=== PATIENT | female | born 1955 | race Caucasian/White ===

== ENCOUNTER 2022-03-10 15:19 | Emergency (ER) | payer MEDICARE, OTHER ==
[~2022-03-10] VITALS: Ht 175.3 cm; Wt 113.4 kg
[~2022-03-10 15:19] MED LIST: ASA81 MG PO; ASPIRIN81 MG PO; BENZONATATE100 MG PO; CALTRATE 600+D1 EACH PO; DULERA 200 MCG/13 GM INH; EFFEXOR XR 3737.5 MG PO; EFFEXOR100 MG PO; FLUOXETINE HCL20 M1 PO; GABAPENTIN300 MG PO; GABAPENTIN400 MG PO; GLIMEPIRIDE2 MG PO; HYDROCODON-ACE1 EAC9 PO; HYDROCODONE-AP1 EA10 PO; KLOR-CON20 MEQ PO; LASIX40 MG PO; LINZESS145 MCG PO; LOSARTAN POTASS25 MG PO; METFORMIN HCL500 M2 PO; METHOCARBAMOL750 MG PO; MONTELUKAST SOD10 MG PO; NOVOLIN 70100 UNIT/3 SC; NOVOLIN R100 UNIT/1 SQ; OMEPRAZOLE40 MG PO; PRAVASTATIN SOD80 MG PO; PROAIR HFA INH8.5 GM INH; PROVENTIL HFA6.7 GM INH; ROBAXIN-750750 MG PO; SUCRALFATE1 GM PO; TRELEGY ELLIPT1 EACH INH; ULTRAM 50MG50 MG PO; VENTOLIN HFA18 GM INH; VICOPROFEN PO; VIT B12 PO; VIT D3 PO; VITAMIN B-121000 MCG PO; VITAMIN D31000 UNIT PO; Z ALBUTEROL SULFAT PO; Z.0.BENADRYL25 MG PO; Z.0.EFFEXOR XR150 MG PO; Z.0.LISINOPRIL10 MG PO; Z.0.LYRICA50 MG PO; Z.0.OMEPRAZOLE40 MG PO; Z.0.SIMVASTATIN40 MG PO; Z.1.VITAMIN D400 UNI PO; Z.2.METFORMIN HCL500 PO; ZANTAC150 M1 PO; ZANTAC150 MG PO; [UNRECOGNIZED DRUG - CODE] PO; [UNRECOGNIZED DRUG - OTHER] NS
[2022-03-10] MEDS ORDERED: AMOXICILLIN/CLAVULANATE K 875 MG TAB PO STA (15:23)
[2022-03-10] MEDS ORDERED: TETANUS/DIPHTHERIA TOX ADULT 0.5 ML SYR IM ONE (15:30)
[2022-03-10] MEDS ORDERED: AMOX TR-K CLV1 EAC2 PO (16:01)
== END 2022-03-10 16:40 | disposition home or self-care (01) ==
LOC: ER 15:26 → MERGE 15:26 → UNMERGE 15:26 → ER 16:40
DX: S50.811A Abrasion of right forearm, initial encounter (principal); W55.03XA Scratched by cat, initial encounter; W01.0XXA Fall on same level from slipping, tripping and stumbling without subsequent striking against object, initial encounter; Y92.89 Other specified places as the place of occurrence of the external cause; I10 Essential (primary) hypertension; E11.9 Type 2 diabetes mellitus without complications; E78.5 Hyperlipidemia, unspecified; J44.9 Chronic obstructive pulmonary disease, unspecified; J45.909 Unspecified asthma, uncomplicated; M54.9 Dorsalgia, unspecified; G89.29 Other chronic pain
CPT/HCPCS: 70450; 72125; 90714; 99283

== ENCOUNTER 2025-01-28 20:28 | Inpatient (IN) | payer MEDICARE, OTHER ==
[~2025-01-28] VITALS: Ht 162.6 cm; Wt 133.4 kg
[~2025-01-28 20:28] MED LIST changes: +AMOX TR-K CLV1 EAC2 PO
[2025-01-28] MEDS ORDERED: SODIUM CHLORIDE 0.9% 100 ML ONE (22:25)
[2025-01-28] MEDS ORDERED: IOPAMIDOL 370 MG/ML 100 ML INFUS..BTL INJ ONE (22:25)
[2025-01-28] MEDS: SODIUM BICARBONATE 8.4% INJ 50 ML SYR IV STA (22:33)
[2025-01-28] MEDS: FUROSEMIDE INJ 10 MG/ML 4 ML VIAL IV ONE (22:33)
[2025-01-28] MEDS: CALCIUM GLUC 1 G/50 ML NACL 50 ML IV ONE (22:34)
[2025-01-28] MEDS: DEXTROSE 50% SYRINGE 50 ML IV ONE (22:34)
[2025-01-28] MEDS ORDERED: HYDRALAZINE HCL 20 MG/ML VIAL IV PRN (23:15)
[2025-01-29] VITALS (10 sets, daily range): BP systolic 147–170; BP diastolic 61–68; PULSE 68–81; RESP 16–20; TEMP 97.9–98.5; O2SAT 91–97
[2025-01-29] MEDS ORDERED: SODIUM CHLORIDE FLUSH 10 ML SYR INJ PRN (01:00)
[2025-01-29] MEDS ORDERED: POLYETHYLENE GLYCOL 3350 17 GM PACK PO PRN (02:45)
[2025-01-29] MEDS ORDERED: DEXTROSE 50% SYRINGE 50 ML IV PRN (02:45)
[2025-01-29] MEDS ORDERED: MAGNESIUM/ALUMINUM/SIMETHICONE 30 ML UDC PO PRN (02:45)
[2025-01-29] MEDS: FUROSEMIDE INJ 10 MG/ML 4 ML VIAL IV SCH (03:29)
[2025-01-29] MEDS: METHYLPREDNISOLONE SOD SUCC 40 MG/ML VIAL 1ML IV ONE (03:30)
[2025-01-29 05:51] LABS: EST GLOMERULAR FILTRATION RATE 41.0 ML/MIN (>=60)
[2025-01-29 06:14] LABS: INR 1.16
[2025-01-29] MEDS: INSULIN REGULAR, HUMAN 100 UNIT/1 ML IV ONE (06:43)
[2025-01-29] MEDS: IPRATROPIUM BROMIDE 0.02% 2.5 ML NEB NEB SCH (07:00)
[2025-01-29] MEDS: INSULIN REGULAR, HUMAN 100 UNIT/1 ML SQ SCH (07:30)
[2025-01-29] MEDS: SOD POLYSTYRENE SULFONATE SUSP 15 GM/60 ML BTL PO ONE (08:26)
[2025-01-29] MEDS: MONTELUKAST SODIUM 10 MG TAB PO SCH (08:55)
[2025-01-29] MEDS: SENNOSIDES 8.6 MG TAB PO SCH (08:55)
[2025-01-29] MEDS: MULTIVITAMINS/MINERALS TAB PO SCH (08:55)
[2025-01-29] MEDS: PREDNISONE 20 MG TAB PO SCH (08:55)
[2025-01-29] MEDS: ACETAMINOPHEN 325 MG TAB PO PRN (08:55)
[2025-01-29] MEDS: DOCUSATE SODIUM 100 MG CAP PO SCH (08:55)
[2025-01-29] MEDS: PANTOPRAZOLE SOD 40 MG TABEC PO SCH (08:56)
[2025-01-29] MEDS ORDERED: LOSARTAN POTASS50 MG PO (09:40)
[2025-01-29] MEDS ORDERED: POTASSIUM CHLO20 ME1 PO (09:40)
[2025-01-29] MEDS ORDERED: AMIODARONE HCL200 MG PO (09:40)
[2025-01-29] MEDS ORDERED: TRIAMTERENE-HCTZ1 EA PO (09:40)
[2025-01-29] MEDS ORDERED: ELIQUIS5 MG PO (09:40)
[2025-01-29] MEDS ORDERED: TRELEGY ELLIPT1 EACH (09:40)
[2025-01-29] MEDS ORDERED: IPRAT-ALBUT 0.5-3 ML (09:40)
[2025-01-29 11:30] LABS: BASOPHILS % 0.7 % (0.0-1.0); EOSINOPHILS % 1.2 % (0.0-6.0); LYMPHOCYTES % 9.7 % (18.0-39.1); MONOCYTES % 3.6 % (4.4-11.3); NEUTROPHILS % 84.5 % (38.7-80.0); RED CELL DISTRIBUTION WIDTH 15.9 % (11.7-14.4)
[2025-01-29] MEDS: ONDANSETRON HCL INJ 2MG/ML 2ML 2 MG/ML VIAL IV PRN (13:11)
[2025-01-29] MEDS: Morphine 4mg INJECTION 4 MG/ML INJ IV PRN (13:12)
[2025-01-29] MEDS: ALBUTEROL SULF 0.083% NEB SOLN 3 ML NEB NEB PRN (13:51)
[2025-01-29 15:40] LABS: BODY FLUID APPEARANCE CLOUDY; BODY FLUID COLOR YELLOW; BODY FLUID TYPE PLEURAL; WBC,BODY FLUID 889 cells/uL
[2025-01-29 16:14] LABS: LYMPHOCYTES,BODY FLUID 61 %; MONO/MACROPHG,BODY FLUID 11 %; NEUTROPHILS,BODY FLUID 5 %; OTHER CELLS,BODY FLUID 23 %; TOTAL CELLS COUNTED (DIFF) 100
[2025-01-29] MEDS: NIFEDIPINE CR 30 MG TAB PO SCH (16:27)
[2025-01-29] MEDS: APIXABAN 2.5 MG TABLET PO SCH (16:28)
[2025-01-29] MEDS: INSULIN GLARGINE 100 UNITS/ML VIAL SQ SCH (23:30)
[2025-01-30] VITALS (11 sets, daily range): BP systolic 119–154; BP diastolic 50–74; PULSE 64–98; RESP 16–20; TEMP 97.8–98.9; O2SAT 76–100
[2025-01-30 05:51] LABS: BASOPHILS % 0.3 % (0.0-1.0); EOSINOPHILS % 0.8 % (0.0-6.0); LYMPHOCYTES % 17.5 % (18.0-39.1); MONOCYTES % 11.3 % (4.4-11.3); NEUTROPHILS % 69.7 % (38.7-80.0); RED CELL DISTRIBUTION WIDTH 15.9 % (11.7-14.4)
[2025-01-30 06:15] LABS: EST GLOMERULAR FILTRATION RATE 30.0 ML/MIN (>=60)
[2025-01-30 06:33] LABS: PHOSPHORUS 4.4 MG/DL (2.3-4.7)
[2025-01-30] MEDS: APIXABAN 5 MG TABLET PO SCH (08:20)
[2025-01-30] MEDS: LINACLOTIDE 145 MCG CAPSULE PO SCH (08:20)
[2025-01-30] MEDS ORDERED: IPRATROPIUM BROMIDE 0.02% 2.5 ML NEB NEB PRN (10:30)
[2025-01-30 13:54] LABS: GLUCOSE,BODY FLUID 160.0 mg/dL; TOTAL PROTEIN,BODY FLUID 3.4 g/dL
[2025-01-30] MEDS ORDERED: ENOXAPARIN SOD INJ 40 MG/0.4 ML SYR SC SCH (17:00)
[2025-01-30] MEDS: MELATONIN 3 MG TAB PO PRN (20:55)
[2025-01-30] MEDS: GUAIFENESIN/DEXTROMETHORPHAN LIQD 5 ML UDC PO PRN (20:56)
[2025-01-31 04:00] VITALS: BP 142/67; PULSE 66; RESP 20; TEMP 97.7; O2SAT 100
[2025-01-31 06:51] LABS: BASOPHILS % 0.4 % (0.0-1.0); EOSINOPHILS % 2.1 % (0.0-6.0); LYMPHOCYTES % 23.9 % (18.0-39.1); MONOCYTES % 9.3 % (4.4-11.3); NEUTROPHILS % 64.0 % (38.7-80.0); RED CELL DISTRIBUTION WIDTH 15.8 % (11.7-14.4)
[2025-01-31 07:18] LABS: EST GLOMERULAR FILTRATION RATE 40.0 ML/MIN (>=60)
[2025-01-31 07:53] VITALS: PULSE 82; RESP 16; O2SAT 97
[2025-01-31 08:17] VITALS: BP 149/58; PULSE 70; RESP 20; TEMP 98.2; O2SAT 99
[2025-01-31 08:27] VITALS: BP 149/58; PULSE 70; RESP 20; TEMP 98.2; O2SAT 99
[2025-01-31] MEDS: FUROSEMIDE INJ 10 MG/ML 4 ML VIAL IV SCH (09:09)
[2025-01-31 11:46] VITALS: BP 154/68; PULSE 69; RESP 21; TEMP 98.1; O2SAT 99
[2025-01-31 13:25] VITALS: PULSE 78; RESP 16; O2SAT 95
== END 2025-01-31 14:22 | disposition home or self-care (01) | DRG 291 ==
LOC: FSED 20:40 → ERHOLD 01-29 00:49 → MED/SURG3 01-29 08:19
PROVIDERS: ADMIT Internal Medicine; ATTEND Internal Medicine
PROC: 0W993ZZ Drainage of Right Pleural Cavity, Percutaneous Approach (ICD-10-PCS; principal; 2025-01-29)
DX: I13.0 Hypertensive heart and chronic kidney disease with heart failure and stage 1 through stage 4 chronic kidney disease, or unspecified chronic kidney disease (principal); I50.33 Acute on chronic diastolic (congestive) heart failure; J18.9 Pneumonia, unspecified organism; J96.01 Acute respiratory failure with hypoxia; J90 Pleural effusion, not elsewhere classified; J44.1 Chronic obstructive pulmonary disease with (acute) exacerbation; J44.0 Chronic obstructive pulmonary disease with (acute) lower respiratory infection; Z68.43 Body mass index [BMI] 50.0-59.9, adult; N17.9 Acute kidney failure, unspecified; J98.11 Atelectasis; E11.22 Type 2 diabetes mellitus with diabetic chronic kidney disease; N18.30 Chronic kidney disease, stage 3 unspecified; D63.1 Anemia in chronic kidney disease; D63.8 Anemia in other chronic diseases classified elsewhere; I27.29 Other secondary pulmonary hypertension; I16.0 Hypertensive urgency; E78.5 Hyperlipidemia, unspecified; I48.0 Paroxysmal atrial fibrillation; E66.01 Morbid (severe) obesity due to excess calories; E87.5 Hyperkalemia; M19.90 Unspecified osteoarthritis, unspecified site; F32.A Depression, unspecified; K21.9 Gastro-esophageal reflux disease without esophagitis; G47.33 Obstructive sleep apnea (adult) (pediatric); M54.9 Dorsalgia, unspecified; Z11.52 Encounter for screening for COVID-19; Z79.4 Long term (current) use of insulin; Z79.82 Long term (current) use of aspirin; Z79.84 Long term (current) use of oral hypoglycemic drugs; Z79.51 Long term (current) use of inhaled steroids
CPT/HCPCS: 0223U; 32555; 36415; 36568; 71045; 71260; 74470; 80048; 80053; 82550; 82945; 82948; 83036; 83518; 83615; 83735; 84100; 84157; 84443; 84484; 85025; 85610; 85730; 87070; 87205; 87400; 88112; 88305; 89051; 93005; 93306; 93970; 94640; 94799; 99284; J1938; J2270; J2405; J2470; J2543; J2919; J7050; J7512; J7799; Q9967